=== PATIENT | female | born 1955 | race Two or more races ===

== ENCOUNTER 2024-03-03 13:04 | Emergency (ER) | payer BC ==
[2024-03-03 13:14] VITALS: PULSE 60; RESP 16; TEMP 98.6; BMI 29.0
[2024-03-03] MEDS ORDERED: METOCLOPRAMIDE HCL INJECTION 10 MG/2 ML VIAL ONE (13:52)
[2024-03-03] MEDS: METOCLOPRAMIDE HCL INJECTION 10 MG/2 ML VIAL IVPUSH ONE (14:05)
[2024-03-03] MEDS: SODIUM CHLORIDE 0.9% 500 ML INFUS.BAG IV ONE (14:05)
[2024-03-03 14:18] LABS: HEMATOCRIT 41.7 % (32.4-45.2); HEMOGLOBIN 13.6 G/dL (10.7-15.3); MCHC 32.5 g/dl (32.0-36.0); MEAN CELL VOLUME 95.5 fl (80-96); MEAN PLT VOLUME 9.6 fl (7.5-11.1); PLATELET COUNT 245.1 10^3/uL (134-434); RBC 4.37 10^6/uL (3.60-5.2); RDW 13.8 % (11.6-15.6); WHITE BLOOD COUNT 7.4 10^3/uL (4.0-10.8)
[2024-03-03 14:21] LABS: EPITHELIAL CELLS 0-5 /hpf
[2024-03-03 15:35] LABS: ALBUMIN 4.2 g/dl (3.4-5.0); BILIRUBIN,TOTAL 0.5 mg/dl (0.2-1); CALCIUM 9.3 mg/dl (8.5-10.1); CREATININE 0.8 mg/dl (0.6-1.3); POTASSIUM 3.6 mmol/L (3.5-5.1); TOT PROT 6.4 g/dl (6.4-8.2)
[2024-03-03] MEDS ORDERED: KETOROLAC TROMETHAMINE 15 MG/ML VIAL ONE (15:53)
[2024-03-03] MEDS: KETOROLAC TROMETHAMINE 15 MG/ML VIAL IVPUSH ONE (16:05)
[2024-03-03] MEDS: KETOROLAC TROMETHAMINE 15 MG/ML VIAL IM ONE (16:11)
[2024-03-03 16:29] VITALS: BP 130/69
[2024-03-03 23:11] LABS: PLATELET ESTIMATE ADEQUATE
== END 2024-03-03 17:04 | disposition home or self-care (01) ==
LOC: FER 13:04
PROC: 3E0333Z Introduction of Anti-inflammatory into Peripheral Vein, Percutaneous Approach (ICD-10-PCS; principal; 2024-03-03)
PROC: 3E033GC Introduction of Other Therapeutic Substance into Peripheral Vein, Percutaneous Approach (ICD-10-PCS; 2024-03-03)
DX: R51.9 Headache, unspecified (principal); I10 Essential (primary) hypertension; R53.1 Weakness; Z20.822 Contact with and (suspected) exposure to COVID-19
CPT/HCPCS: 0241U-QW; 36415; 70450-TC; 80053; 81003; 81015; 82550; 83880; 84484; 85027; 93005; 99285-25